=== PATIENT | male | born 1985 | race African-American/Black ===

== ENCOUNTER → 2020-03-11 10:45 | Outpatient (BNVA) | payer OTHER, SELFPAY | PROVIDERS: PCP Internal Medicine; Referring Provider Internal Medicine; Visit Provider Student in an Organized Health Care Education/Training Program | DX: Z76.89 Persons encountering health services in other specified circumstances (principal) ==

== ENCOUNTER → 2020-06-17 09:28 | Outpatient (BNVA) | payer OTHER, SELFPAY | PROVIDERS: PCP Internal Medicine; Visit Provider Student in an Organized Health Care Education/Training Program ==

== ENCOUNTER → 2020-08-23 08:52 | Outpatient (BNVA) | payer OTHER, SELFPAY | PROVIDERS: PCP Internal Medicine; Visit Provider Student in an Organized Health Care Education/Training Program | DX: M05.9 Rheumatoid arthritis with rheumatoid factor, unspecified (principal); Z79.899 Other long term (current) drug therapy | CPT/HCPCS: 99212 ==

== ENCOUNTER 2020-12-05 14:14 | Outpatient (REF) | payer OTHER, SELFPAY ==
[2020-12-05 14:26] LABS: MANUAL DIFF FLAG NO
[2020-12-05 14:46] LABS: Basophils Percent Auto 0.3 % (0-2); Eosinophils Absolute Auto 0.1 X10*3/uL (0.0-0.4); Eosinophils Percent Auto 1.2 % (0-4); Hematocrit 40.3 % (42-52); Hemoglobin 13.7 g/dl (14.0-18.0); Imm Gran Abs Auto 0.03 X10*3/uL (0.00-0.03); Imm Gran Pct Auto 0.3 % (0.0-0.4); Lymphocytes Absolute Auto 3.9 X10*3/uL (1.2-4.9); Lymphocytes Percent Auto 37.7 % (20-40); Mean Corpuscular Hemoglobin 29.8 pg (27.0-33.0); Mean Corpuscular Volume 87.8 fL (80-98); Mean Platelet Volume 9.1 fL (9.4-12.4); Monocytes Absolute Auto 0.5 X10*3/uL (0.1-1.2); Neutrophils Absolute Auto 5.8 X10*3/uL (2.0-8.3); Neutrophils Percent Auto 55.5 % (45-73); Platelet Count 252 X10*3/uL (160-400); Red Blood Count 4.59 X10*6/uL (4.60-5.80); Red Cell Distribution Width 13.3 % (11.0-16.0); White Blood Count 10.4 X10*3/uL (4.8-10.8)
[2020-12-05 15:08] LABS: Alanine Aminotransferase 15 U/L (0-40); Albumin Level 4.6 g/dL (3.5-5.0); Alkaline Phosphatase 108 U/L (39-117); Anion Gap 10 (12-20); Aspartate Amino Transferase 26 U/L (5-37); Bilirubin Total 0.8 mg/dL (0.0-1.0); Blood Urea Nitrogen 7 mg/dL (9-16); C Reactive Protein 0.07 mg/dL (< or = 0.50); Calcium 9.9 mg/dL (8.4-10.2); Carbon Dioxide 31 mmol/L (22-29); Chloride 104 mmol/L (96-108); Estimated Glomerular Filt Rate > 60; Glucose Random 99 mg/dL (60-115); Potassium 4.3 mmol/L (3.3-5.1); Sodium 141 mmol/L (135-145); Total Protein 7.3 g/dL (6.5-8.0)
[2020-12-05 15:56] LABS: Erythrocyte Sedimentation Rate 12 MM/HR (0-15)
== END 2020-12-05 14:15 | disposition home or self-care (01) ==
LOC: HO.LAB 14:14
PROVIDERS: Visit Provider Nurse Practitioner Family
DX: M05.9 Rheumatoid arthritis with rheumatoid factor, unspecified (principal)
CPT/HCPCS: 36415; 80053; 85025; 85652; 86140

== ENCOUNTER → 2020-12-21 08:43 | Outpatient (BNVA) | payer OTHER, SELFPAY | PROVIDERS: PCP Internal Medicine; Visit Provider Nurse Practitioner Family | DX: M05.9 Rheumatoid arthritis with rheumatoid factor, unspecified (principal); Z79.899 Other long term (current) drug therapy | CPT/HCPCS: 99212 ==

== ENCOUNTER 2021-04-08 09:05 | Outpatient (REF) | payer OTHER, SELFPAY ==
[2021-04-08 09:27] LABS: MANUAL DIFF FLAG NO
[2021-04-08 10:10] LABS: Basophils Percent Auto 0.2 % (0-2); Eosinophils Absolute Auto 0.3 X10*3/uL (0.0-0.4); Eosinophils Percent Auto 2.3 % (0-4); Hematocrit 39.9 % (42.0-52.0); Hemoglobin 13.4 g/dl (14.0-18.0); Imm Gran Abs Auto 0.08 X10*3/uL (0.00-0.03); Imm Gran Pct Auto 0.6 % (0.0-0.4); Lymphocytes Absolute Auto 3.7 X10*3/uL (1.2-4.9); Lymphocytes Percent Auto 28.6 % (20-40); Mean Corpuscular HGB Conc 33.6 g/dl (31.0-36.0); Mean Corpuscular Hemoglobin 29.6 pg (27.0-33.0); Mean Corpuscular Volume 88.3 fL (80.0-98.0); Mean Platelet Volume 9.3 fL (9.4-12.4); Monocytes Absolute Auto 0.8 X10*3/uL (0.1-1.2); Neutrophils Absolute Auto 8.1 x10*3/uL (2.0-8.3); Neutrophils Percent Auto 62.3 % (45-73); Platelet Count 296 X10*3/uL (160-400); Red Blood Count 4.52 X10*6/uL (4.60-5.80); Red Cell Distribution Width 13.3 % (11.0-16.0)
[2021-04-08 10:20] LABS: Alanine Aminotransferase 13 U/L (0-40); Albumin Level 4.2 g/dL (3.5-5.0); Alkaline Phosphatase 107 U/L (39-117); Anion Gap 12 (12-20); Aspartate Amino Transferase 26 U/L (5-37); Bilirubin Total 0.4 mg/dL (0.0-1.0); Blood Urea Nitrogen 10 mg/dL (9-16); C Reactive Protein 0.12 mg/dL (< or = 0.50); Calcium 9.7 mg/dL (8.4-10.2); Carbon Dioxide 27 mmol/L (22-29); Chloride 107 mmol/L (96-108); Estimated Glomerular Filt Rate > 60; Glucose Random 92 mg/dL (60-115); Potassium 4.7 mmol/L (3.3-5.1); Sodium 141 mmol/L (135-145)
[2021-04-08 11:07] LABS: Erythrocyte Sedimentation Rate 16 MM/HR (0-15)
== END 2021-04-08 09:06 | disposition home or self-care (01) ==
LOC: HO.LAB 09:05
PROVIDERS: Visit Provider Nurse Practitioner Family
DX: M05.9 Rheumatoid arthritis with rheumatoid factor, unspecified (principal); Z79.899 Other long term (current) drug therapy
CPT/HCPCS: 36415; 80053; 85025; 85652; 86140

== ENCOUNTER → 2021-04-24 12:32 | Outpatient (BNVA) | payer OTHER, SELFPAY | PROVIDERS: PCP Internal Medicine; Visit Provider Nurse Practitioner Family | DX: M05.9 Rheumatoid arthritis with rheumatoid factor, unspecified (principal); Z79.899 Other long term (current) drug therapy | CPT/HCPCS: 99212 ==

== ENCOUNTER 2021-07-08 09:56 | Outpatient (REF) | payer OTHER, SELFPAY ==
[2021-07-08 10:15] LABS: MANUAL DIFF FLAG NO
[2021-07-08 11:01] LABS: Basophils Percent Auto 0.2 % (0-2); Eosinophils Absolute Auto 0.2 X10*3/uL (0.0-0.4); Eosinophils Percent Auto 1.7 % (0-4); Hematocrit 41.4 % (42.0-52.0); Hemoglobin 13.9 g/dl (14.0-18.0); Imm Gran Abs Auto 0.03 X10*3/uL (0.00-0.03); Imm Gran Pct Auto 0.3 % (0.0-0.4); Lymphocytes Absolute Auto 3.9 X10*3/uL (1.2-4.9); Lymphocytes Percent Auto 33.2 % (20-40); Mean Corpuscular HGB Conc 33.6 g/dl (31.0-36.0); Mean Corpuscular Hemoglobin 29.4 pg (27.0-33.0); Mean Corpuscular Volume 87.7 fL (80.0-98.0); Monocytes Absolute Auto 0.6 X10*3/uL (0.1-1.2); Monocytes Percent Auto 5.5 % (2-11); Neutrophils Absolute Auto 6.9 x10*3/uL (2.0-8.3); Neutrophils Percent Auto 59.1 % (45-73); Platelet Count 261 X10*3/uL (160-400); Red Blood Count 4.72 X10*6/uL (4.60-5.80); Red Cell Distribution Width 13.3 % (11.0-16.0); White Blood Count 11.7 X10*3/uL (4.8-10.8)
[2021-07-08 11:20] LABS: Alanine Aminotransferase 16 U/L (0-40); Albumin Level 4.2 g/dL (3.5-5.0); Alkaline Phosphatase 107 U/L (39-117); Anion Gap 13 (12-20); Aspartate Amino Transferase 24 U/L (5-37); Bilirubin Total 0.6 mg/dL (0.0-1.0); Blood Urea Nitrogen 11 mg/dL (9-16); C Reactive Protein 0.07 mg/dL (< or = 0.50); Calcium 9.8 mg/dL (8.4-10.2); Carbon Dioxide 27 mmol/L (22-29); Chloride 104 mmol/L (96-108); Estimated Glomerular Filt Rate > 60; Glucose Random 118 mg/dL (60-115); Potassium 4.4 mmol/L (3.3-5.1); Sodium 140 mmol/L (135-145); Total Protein 6.9 g/dL (6.5-8.0)
[2021-07-08 11:46] LABS: Erythrocyte Sedimentation Rate 11 MM/HR (0-15)
== END 2021-07-08 09:57 | disposition home or self-care (01) ==
LOC: HO.LAB 09:56
PROVIDERS: PCP Internal Medicine; Visit Provider Nurse Practitioner Family
DX: M05.9 Rheumatoid arthritis with rheumatoid factor, unspecified (principal)
CPT/HCPCS: 36415; 80053; 85025; 85652; 86140

== ENCOUNTER → 2021-07-18 13:36 | Outpatient (BNVA) | payer OTHER, SELFPAY | PROVIDERS: PCP Internal Medicine; Visit Provider Nurse Practitioner Family | DX: M05.9 Rheumatoid arthritis with rheumatoid factor, unspecified (principal); Z79.899 Other long term (current) drug therapy | CPT/HCPCS: 99212 ==

== ENCOUNTER 2021-11-11 08:18 | Outpatient (REF) | payer OTHER, SELFPAY ==
[2021-11-11 08:40] LABS: MANUAL DIFF FLAG NO
[2021-11-11 08:48] LABS: Basophils Percent Auto 0.3 % (0-2); Eosinophils Absolute Auto 0.2 X10*3/uL (0.0-0.4); Eosinophils Percent Auto 1.5 % (0-4); Hematocrit 41.7 % (42.0-52.0); Hemoglobin 14.1 g/dl (14.0-18.0); Imm Gran Abs Auto 0.03 X10*3/uL (0.00-0.03); Imm Gran Pct Auto 0.3 % (0.0-0.4); Lymphocytes Percent Auto 28.5 % (20-40); Mean Corpuscular HGB Conc 33.8 g/dl (31.0-36.0); Mean Corpuscular Hemoglobin 29.9 pg (27.0-33.0); Mean Corpuscular Volume 88.3 fL (80.0-98.0); Mean Platelet Volume 8.8 fL (9.4-12.4); Monocytes Absolute Auto 0.6 X10*3/uL (0.1-1.2); Monocytes Percent Auto 5.6 % (2-11); Neutrophils Absolute Auto 6.6 x10*3/uL (2.0-8.3); Neutrophils Percent Auto 63.8 % (45-73); Platelet Count 273 X10*3/uL (160-400); Red Blood Count 4.72 X10*6/uL (4.60-5.80); Red Cell Distribution Width 13.6 % (11.0-16.0); White Blood Count 10.4 X10*3/uL (4.8-10.8)
[2021-11-11 09:22] LABS: Alanine Aminotransferase 15 U/L (0-40); Albumin Level 4.3 g/dL (3.5-5.0); Alkaline Phosphatase 110 U/L (39-117); Anion Gap 14 (12-20); Aspartate Amino Transferase 25 U/L (5-37); Bilirubin Total 0.6 mg/dL (0.0-1.0); Blood Urea Nitrogen 11 mg/dL (9-16); C Reactive Protein 0.12 mg/dL (< or = 0.50); Calcium 9.8 mg/dL (8.4-10.2); Carbon Dioxide 28 mmol/L (22-29); Chloride 105 mmol/L (96-108); Estimated Glomerular Filt Rate > 60; Glucose Random 108 mg/dL (60-115); Potassium 4.7 mmol/L (3.3-5.1); Sodium 142 mmol/L (135-145); Total Protein 7.2 g/dL (6.5-8.0)
[2021-11-11 09:40] LABS: Erythrocyte Sedimentation Rate 14 MM/HR (0-15)
== END 2021-11-11 08:19 | disposition home or self-care (01) ==
LOC: HO.LAB 08:18
PROVIDERS: PCP Internal Medicine; Visit Provider Nurse Practitioner Family
DX: M05.9 Rheumatoid arthritis with rheumatoid factor, unspecified (principal)
CPT/HCPCS: 36415; 80053; 85025; 85652; 86140

== ENCOUNTER → 2021-11-28 14:14 | Outpatient (BNVA) | payer OTHER, SELFPAY | PROVIDERS: PCP Internal Medicine; Visit Provider Nurse Practitioner Family | DX: M05.9 Rheumatoid arthritis with rheumatoid factor, unspecified (principal); Z79.899 Other long term (current) drug therapy | CPT/HCPCS: 99212 ==

== ENCOUNTER 2022-03-20 06:19 | Outpatient (REF) | payer OTHER, SELFPAY ==
[2022-03-20 06:25] LABS: MANUAL DIFF FLAG NO
[2022-03-20 07:32] LABS: Basophils Percent Auto 0.4 % (0-2); Eosinophils Absolute Auto 0.2 X10*3/uL (0.0-0.4); Eosinophils Percent Auto 2.2 % (0-4); Hematocrit 42.5 % (42.0-52.0); Hemoglobin 14.1 g/dl (14.0-18.0); Imm Gran Abs Auto 0.02 X10*3/uL (0.00-0.03); Imm Gran Pct Auto 0.2 % (0.0-0.4); Lymphocytes Absolute Auto 4.8 X10*3/uL (1.2-4.9); Lymphocytes Percent Auto 44.1 % (20-40); Mean Corpuscular HGB Conc 33.2 g/dl (31.0-36.0); Mean Corpuscular Hemoglobin 29.2 pg (27.0-33.0); Mean Platelet Volume 9.3 fL (9.4-12.4); Monocytes Absolute Auto 0.8 X10*3/uL (0.1-1.2); Monocytes Percent Auto 7.5 % (2-11); Neutrophils Percent Auto 45.6 % (45-73); Platelet Count 280 X10*3/uL (160-400); Red Blood Count 4.83 X10*6/uL (4.60-5.80); Red Cell Distribution Width 13.5 % (11.0-16.0); White Blood Count 10.9 X10*3/uL (4.8-10.8)
[2022-03-20 08:00] LABS: Alanine Aminotransferase 15 U/L (0-40); Aspartate Amino Transferase 25 U/L (5-37); C Reactive Protein < 0.10 mg/dL (< or = 0.50); Estimated Glomerular Filt Rate > 60
[2022-03-20 08:10] LABS: Erythrocyte Sedimentation Rate 17 MM/HR (0-15)
== END 2022-03-20 06:20 | disposition home or self-care (01) ==
LOC: HO.LAB 06:19
PROVIDERS: PCP Internal Medicine; Visit Provider Nurse Practitioner Family
DX: M05.9 Rheumatoid arthritis with rheumatoid factor, unspecified (principal); Z79.899 Other long term (current) drug therapy
CPT/HCPCS: 36415; 82565; 84450; 84460; 85025; 85652; 86140

== ENCOUNTER → 2022-03-22 13:24 | Outpatient (BNVA) | payer OTHER, SELFPAY | PROVIDERS: PCP Internal Medicine; Visit Provider Nurse Practitioner Family | DX: M05.9 Rheumatoid arthritis with rheumatoid factor, unspecified (principal) | CPT/HCPCS: 99212 ==

== ENCOUNTER 2022-06-30 07:49 | Outpatient (REF) | payer OTHER, SELFPAY ==
[2022-06-30 08:16] LABS: MANUAL DIFF FLAG NO
[2022-06-30 08:41] LABS: Basophils Percent Auto 0.2 % (0-2); Eosinophils Absolute Auto 0.2 X10*3/uL (0.0-0.4); Eosinophils Percent Auto 1.5 % (0-4); Hematocrit 43.5 % (42.0-52.0); Hemoglobin 14.8 g/dl (14.0-18.0); Imm Gran Abs Auto 0.05 X10*3/uL (0.00-0.03); Imm Gran Pct Auto 0.4 % (0.0-0.4); Lymphocytes Absolute Auto 3.4 X10*3/uL (1.2-4.9); Lymphocytes Percent Auto 24.7 % (20-40); Mean Corpuscular Hemoglobin 29.9 pg (27.0-33.0); Mean Corpuscular Volume 87.9 fL (80.0-98.0); Mean Platelet Volume 9.1 fL (9.4-12.4); Monocytes Absolute Auto 0.8 X10*3/uL (0.1-1.2); Monocytes Percent Auto 6.1 % (2-11); Neutrophils Absolute Auto 9.2 x10*3/uL (2.0-8.3); Neutrophils Percent Auto 67.1 % (45-73); Platelet Count 288 X10*3/uL (160-400); Red Blood Count 4.95 X10*6/uL (4.60-5.80); Red Cell Distribution Width 13.5 % (11.0-16.0); White Blood Count 13.7 X10*3/uL (4.8-10.8)
[2022-06-30 09:04] LABS: Alanine Aminotransferase 19 U/L (0-40); Aspartate Amino Transferase 26 U/L (5-37); C Reactive Protein < 0.10 mg/dL (< or = 0.50); Estimated Glomerular Filt Rate > 60
[2022-06-30 10:03] LABS: Erythrocyte Sedimentation Rate 7 MM/HR (0-15)
== END 2022-06-30 07:50 | disposition home or self-care (01) ==
LOC: HO.LAB 07:49
PROVIDERS: PCP Internal Medicine; Visit Provider Nurse Practitioner Family
DX: M05.9 Rheumatoid arthritis with rheumatoid factor, unspecified (principal); Z79.899 Other long term (current) drug therapy
CPT/HCPCS: 36415; 82565; 84450; 84460; 85025; 85652; 86140

== ENCOUNTER → 2022-07-24 15:17 | Outpatient (BNVA) | payer OTHER, SELFPAY | PROVIDERS: PCP Internal Medicine; Visit Provider Nurse Practitioner Family | DX: M05.9 Rheumatoid arthritis with rheumatoid factor, unspecified (principal); Z79.899 Other long term (current) drug therapy | CPT/HCPCS: 99212 ==

== ENCOUNTER 2022-11-09 16:12 | Outpatient (REF) | payer OTHER, SELFPAY ==
[2022-11-09 16:23] LABS: MANUAL DIFF FLAG NO
[2022-11-09 17:12] LABS: Basophils Percent Auto 0.2 % (0-2); Eosinophils Absolute Auto 0.2 X10*3/uL (0.0-0.4); Eosinophils Percent Auto 1.6 % (0-4); Hematocrit 37.2 % (42.0-52.0); Hemoglobin 12.8 g/dl (14.0-18.0); Imm Gran Abs Auto 0.03 X10*3/uL (0.00-0.03); Imm Gran Pct Auto 0.3 % (0.0-0.4); Lymphocytes Percent Auto 35.1 % (20-40); Mean Corpuscular HGB Conc 34.4 g/dl (31.0-36.0); Mean Corpuscular Hemoglobin 29.8 pg (27.0-33.0); Mean Corpuscular Volume 86.5 fL (80.0-98.0); Monocytes Absolute Auto 0.7 X10*3/uL (0.1-1.2); Monocytes Percent Auto 6.4 % (2-11); Neutrophils Absolute Auto 6.4 x10*3/uL (2.0-8.3); Neutrophils Percent Auto 56.4 % (45-73); Platelet Count 215 X10*3/uL (160-400); Red Cell Distribution Width 13.2 % (11.0-16.0); White Blood Count 11.4 X10*3/uL (4.8-10.8)
[2022-11-09 18:14] LABS: Alanine Aminotransferase 15 U/L (0-40); Aspartate Amino Transferase 26 U/L (5-37); C Reactive Protein < 0.04 mg/dL (< or = 0.50); Estimated Glomerular Filt Rate > 60
[2022-11-09 18:28] LABS: Erythrocyte Sedimentation Rate 12 MM/HR (0-15)
== END 2022-11-09 16:13 | disposition home or self-care (01) ==
LOC: HO.LAB 16:12
PROVIDERS: PCP Internal Medicine; Visit Provider Nurse Practitioner Family
DX: M05.9 Rheumatoid arthritis with rheumatoid factor, unspecified (principal); Z79.899 Other long term (current) drug therapy
CPT/HCPCS: 36415; 82565; 84450; 84460; 85025; 85652; 86140

== ENCOUNTER 2022-11-12 14:29 | Outpatient (AMB) | payer OTHER, SELFPAY ==
[2022-11-12 14:34] VITALS: BP 102/60; PULSE 92; TEMP 37.2; O2SAT 98; BMI 23.7
--- NOTE | 2022-11-12 14:34 | MHC.OFFVIS ---
Intake Vital Signs 11/12/22 14:34 Height 5 ft 8 in Weight 156 lb 1.396 oz BMI 23.7 BP 102/60 Blood Pressure Location Rt brachial Position Sitting Pulse 92 Pulse Source Pulse Oximeter Temp 99.0 F Temp Source Skin Pulse Oximetry (%) 98 Intake Visit Reasons: rheumatoid arthritis Intake Note: Pt seen today for follow up and test results. 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 He was last seen by Kamila Membreno 2022. Continues on Humira 40mg every 2 weeks. Patient states that he continues to do well. He denies any joint pain, swelling or stiffness. He denies any concerns today. 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 Still trying to have a baby with his partner. [facility] Medical History (Updated 11/12/22 @ 14:59 by Gt Drew MD) Denial Seropositive rheumatoid arthritis Surgical History No history of previous surgery Family History Mother Diabetes HTN (hypertension) Father Heart attack Social History Alcohol intake: current Alcohol intake frequency: holidays/special occasions only Patient Tobacco Use Status: Current everyday Tobacco user Cigarettes Per Day: 5 Years Smoked: 10 Review of Systems [facility] [place] Denies arthralgias and Denies stiffness Physical Exam Vital Signs: Last Vital Signs Temp 99.0 F 11/12/22 14:34 Pulse 92 11/12/22 14:34 BP 102/60 11/12/22 14:34 Pulse Ox 98 11/12/22 14:34 BMI result Body Mass Index 23.7 Const General: cooperative, healthy appearing and comfortable Nutritional Appearance: average body habitus Orientation/consciousness: patient oriented x3 Limitations: no limitations HEENT Head: Yes normocephalic and Yes atraumatic Mouth: moist mucous membranes Resp Effort & Inspection: normal respiratory effort and able to speak in complete sentences Auscultation: clear to auscultation bilaterally Cardio Rate: regular rate Rhythm: regular rhythm Neuro General: patient oriented x3 Extrem Other: No active synovitis Assessment & Plan Assessment & Plan (1) Seropositive rheumatoid arthritis: Comment: ++RF+++CCP dx 2017 Methotrexate May 2018- stopped around September 2021 Patient planning with spouse. Enbrel: failed-dates unknown Humira: April 2018 - present effective Code(s): M05.9 - Rheumatoid arthritis with rheumatoid factor, unspecified Plan: This is a 37-year-old male with seropositive RA who returns for follow-up. He is on remission on Humira 40 mg every other week. Continue Humira 40 mg every other week. Labs before next visit in 6 months (2) Tobacco consumption: Code(s): Z72.0 - Tobacco use Plan: Discussed ill effects of smoking on rheumatoid arthritis disease activity in addition to other known ill effects of chronic smoking such as COPD cancers and cardiovascular disease. Advised patient to attempt to quit Plan I spent 26 minutes reviewing patient's chart, evaluating patient, ordering diagnostic workup, counseling patient and documenting in the chart Orders: Orders Comprehensive Met. Panel 6 Months M05.9 - Rheumatoid arthritis with rheumatoid factor, unspecified Hepatitis A,B,C Profile 6 Months Z11.59 - Encounter for screening for other viral diseases T Spot TB 6 Months Z11.7 - Encounter for testing for latent tuberculosis infection Complete Blood Count Auto Diff 6 Months M05.9 - Rheumatoid arthritis with rheumatoid factor, unspecified C Reactive Protein 6 Months M05.9 - Rheumatoid arthritis with rheumatoid factor, unspecified Erythrocyte Sedimentation Rate 6 Months M05.9 - Rheumatoid arthritis with rheumatoid factor, unspecified Coding Level of Care Code Est Pt Level 4 (69619) Diagnoses Seropositive rheumatoid arthritis M05.9 Tobacco consumption Z72.0
== END 2022-11-12 14:51 | disposition home or self-care (01) ==
PROVIDERS: PCP Internal Medicine; Referring Provider Internal Medicine; Visit Provider Student in an Organized Health Care Education/Training Program
DX: M05.79 Rheumatoid arthritis with rheumatoid factor of multiple sites without organ or systems involvement (principal); Z72.0 Tobacco use
CPT/HCPCS: 99214

== ENCOUNTER → 2022-11-12 14:29 | Outpatient (BNVA) | payer OTHER, SELFPAY | PROVIDERS: PCP Internal Medicine; Referring Provider Internal Medicine; Visit Provider Student in an Organized Health Care Education/Training Program | DX: M05.9 Rheumatoid arthritis with rheumatoid factor, unspecified (principal); Z72.0 Tobacco use | CPT/HCPCS: 99212 ==

== ENCOUNTER 2023-04-29 15:53 | Outpatient (REF) | payer OTHER, SELFPAY ==
[2023-04-29 16:05] LABS: MANUAL DIFF FLAG NO
[2023-04-29 17:39] LABS: Basophils Percent Auto 0.3 % (0-2); Eosinophils Absolute Auto 0.3 X10*3/uL (0.0-0.4); Eosinophils Percent Auto 2.4 % (0-4); Hematocrit 39.3 % (42.0-52.0); Hemoglobin 13.5 g/dl (14.0-18.0); Imm Gran Abs Auto 0.03 X10*3/uL (0.00-0.03); Imm Gran Pct Auto 0.3 % (0.0-0.4); Lymphocytes Absolute Auto 4.1 X10*3/uL (1.2-4.9); Lymphocytes Percent Auto 37.6 % (20-40); Mean Corpuscular HGB Conc 34.4 g/dl (31.0-36.0); Mean Corpuscular Hemoglobin 29.7 pg (27.0-33.0); Mean Corpuscular Volume 86.6 fL (80.0-98.0); Mean Platelet Volume 9.4 fL (9.4-12.4); Monocytes Absolute Auto 0.7 X10*3/uL (0.1-1.2); Monocytes Percent Auto 6.6 % (2-11); Neutrophils Absolute Auto 5.8 x10*3/uL (2.0-8.3); Neutrophils Percent Auto 52.8 % (45-73); Platelet Count 255 X10*3/uL (160-400); Red Blood Count 4.54 X10*6/uL (4.60-5.80); Red Cell Distribution Width 13.6 % (11.0-16.0); White Blood Count 10.9 X10*3/uL (4.8-10.8)
[2023-04-29 18:11] LABS: Alanine Aminotransferase 15 U/L (0-40); Albumin Level 4.3 g/dL (3.5-5.0); Alkaline Phosphatase 104 U/L (39-117); Anion Gap 9 (12-20); Aspartate Amino Transferase 26 U/L (5-37); Bilirubin Total 0.3 mg/dL (0.0-1.0); Blood Urea Nitrogen 8 mg/dL (9-16); C Reactive Protein < 0.10 mg/dL (< or = 0.50); Calcium 9.4 mg/dL (8.4-10.2); Carbon Dioxide 30 mmol/L (22-29); Chloride 106 mmol/L (96-108); Estimated Glomerular Filt Rate > 60; Glucose Random 97 mg/dL (60-115); Potassium 3.4 mmol/L (3.3-5.1); Sodium 142 mmol/L (135-145); Total Protein 7.3 g/dL (6.5-8.0)
[2023-04-29 18:15] LABS: Erythrocyte Sedimentation Rate 13 MM/HR (0-15)
[2023-04-30 08:07] LABS: HBS Num1 5.25 mIU/mL (0-7.99); HBc Num1 0.07 S/CO (0.00-0.79); HBsAGNum1 0.39 S/CO (0.00-0.99); Hepatitis A Antibody IgM 0.13 Index (0-0.79); Hepatitis B Core Antibody Nonreactive (Nonreactive); Hepatitis B Surface Antigen Negative (Negative); ~HepC Num1 0.08 S/CO (0.00-0.79); ~Hepatitis A Antibody IgM Nonreactive (Nonreactive); ~Hepatitis B Surface Antibody NONREACTIVE (Nonreactive); ~Hepatitis C Antibody Nonreactive (Nonreactive)
[2023-05-02 00:33] LABS: TS Negative Control Passed; TS Panel A 0; TS Panel B 0; TS Positive Control Passed; TSpotTB Negative (Negative)
== END 2023-04-29 15:54 | disposition home or self-care (01) ==
LOC: HO.LAB 15:53
PROVIDERS: PCP Internal Medicine; Visit Provider Student in an Organized Health Care Education/Training Program
DX: Z11.7 Encounter for testing for latent tuberculosis infection (principal); Z11.59 Encounter for screening for other viral diseases; M05.9 Rheumatoid arthritis with rheumatoid factor, unspecified
CPT/HCPCS: 36415; 80053; 85025; 85652; 86140; 86481; 86704; 86706; 86709; 86803; 87340

== ENCOUNTER 2023-05-01 15:33 | Outpatient (AMB) | payer OTHER, SELFPAY ==
[2023-05-01 15:40] VITALS: BP 110/78; PULSE 81; O2SAT 97; BMI 23.8
--- NOTE | 2023-05-01 15:40 | A.OFFVIS_ITS ---
Intake Vital Signs 05/01/23 15:40 Height 5 ft 8 in Weight 156 lb 11.979 oz BMI 23.8 BP 110/78 Blood Pressure Location Rt brachial Position Sitting Pulse 81 Pulse Source Pulse Oximeter Pulse Oximetry (%) 97 Oxygen Delivery Method Room Air Intake Visit Reasons: RA Intake Note: Patient last seen 11/12/22 presents today for follow up and test results. 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 He was last seen 10/2022 Continues on Humira 40mg every 2 weeks. Patient states that he continues to do well. He denies any joint pain, swelling or stiffness. He denies any concerns today. 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 [facility] Medical History Denial Seropositive rheumatoid arthritis Surgical History No history of previous surgery Family History Mother Diabetes HTN (hypertension) Father Heart attack Social History Alcohol intake: current Alcohol intake frequency: holidays/special occasions only Patient Tobacco Use Status: Current everyday Tobacco user Cigarettes Per Day: 5 Years Smoked: 10 Review of Systems [facility] [place] Denies arthralgias and Denies stiffness Physical Exam Vital Signs: Last Vital Signs Pulse 81 05/01/23 15:40 BP 110/78 05/01/23 15:40 Pulse Ox 97 05/01/23 15:40 Oxygen Delivery Method Room Air 05/01/23 15:40 BMI result Body Mass Index 23.8 Const General: cooperative, healthy appearing and comfortable Nutritional Appearance: average body habitus Orientation/consciousness: patient oriented x3 Limitations: no limitations HEENT Head: Yes normocephalic and Yes atraumatic Mouth: moist mucous membranes Resp Effort & Inspection: normal respiratory effort and able to speak in complete sentences Auscultation: clear to auscultation bilaterally Cardio Rate: regular rate Rhythm: regular rhythm Neuro General: patient oriented x3 Extrem Other: No active synovitis Assessment & Plan Assessment & Plan (1) Seropositive rheumatoid arthritis: Comment: ++RF+++CCP dx 2017 Methotrexate May 2018- stopped around September 2021 Patient planning with spouse. Enbrel: failed-dates unknown Humira: April 2018 - present effective Code(s): M05.9 - Rheumatoid arthritis with rheumatoid factor, unspecified Plan: This is a 38-year-old male with seropositive RA who returns for follow-up. He is on remission on Humira 40 mg every other week. We discussed Humira and its bio similars. Continue Humira 40 mg every other week. Labs before next visit in 6 months (2) Tobacco consumption: Code(s): Z72.0 - Tobacco use Plan: Discussed ill effects of smoking on rheumatoid arthritis disease activity in addition to other known ill effects of chronic smoking such as COPD cancers and cardiovascular disease. Advised patient to attempt to quit Plan I spent 26 minutes reviewing patient's chart, evaluating patient, ordering diagnostic workup, counseling patient and documenting in the chart Coding Level of Care Code Est Pt Level 4 (29904) Diagnoses Seropositive rheumatoid arthritis M05.9 Tobacco consumption Z72.0
== END 2023-05-01 16:06 | disposition home or self-care (01) ==
PROVIDERS: PCP Internal Medicine; Visit Provider Student in an Organized Health Care Education/Training Program
DX: M05.79 Rheumatoid arthritis with rheumatoid factor of multiple sites without organ or systems involvement (principal); Z72.0 Tobacco use
CPT/HCPCS: 99214

== ENCOUNTER → 2023-05-01 15:33 | Outpatient (BNVA) | payer OTHER, SELFPAY | PROVIDERS: PCP Internal Medicine; Visit Provider Student in an Organized Health Care Education/Training Program | DX: M05.9 Rheumatoid arthritis with rheumatoid factor, unspecified (principal); Z72.0 Tobacco use | CPT/HCPCS: 99212 ==

== ENCOUNTER 2024-01-07 13:58 | Outpatient (AMB) | payer OTHER, SELFPAY ==
--- NOTE | 2024-01-07 14:18 | MHC.OFFVIS ---
Vital Signs 01/07/24 14:21 Height 5 ft 8 in Weight 156 lb 11.979 oz BMI 23.8 BP 100/70 Blood Pressure Location Rt brachial Position Sitting Pulse 70 Pulse Source Pulse Oximeter Pulse Oximetry (%) 98 Oxygen Delivery Method Room Air Intake Visit Reasons: RA/LM Intake Note: Patient presents for RA. Allergies No Known Allergies [No Known Allergies*] Allergy (Verified 01/07/24 14:21) Medication List - Last Reconciled 01/07/24 by Gt Drew MD adalimumab (Humira(CF)) 40 mg (0.4 mL) subcut Q2W HPI Comments Details: 38yoM presents for follow-up of seropositive RA (RF++ CCP+++). He was last seen 04/2023 Continues on Humira 40mg every 2 weeks. Patient states that he continues to do well. He denies any joint pain, swelling or stiffness. He denies any concerns today. 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 [facility] Medical History Denial Seropositive rheumatoid arthritis Surgical History No history of previous surgery Family History Mother Diabetes HTN (hypertension) Father Heart attack Social History Alcohol intake: current Alcohol intake frequency: holidays/special occasions only Patient Tobacco Use Status: Current everyday Tobacco user Cigarettes Per Day: 5 Years Smoked: 10 Review of Systems [facility] [place] Denies arthralgias and Denies stiffness Physical Exam Vital Signs: Last Vital Signs Pulse 70 01/07/24 14:21 BP 100/70 01/07/24 14:21 Pulse Ox 98 01/07/24 14:21 Oxygen Delivery Method Room Air 01/07/24 14:21 BMI result Body Mass Index 23.8 Const General: cooperative, healthy appearing and comfortable Nutritional Appearance: average body habitus Orientation/consciousness: patient oriented x3 Limitations: no limitations HEENT Head: Yes normocephalic and Yes atraumatic Mouth: moist mucous membranes Resp Effort & Inspection: normal respiratory effort and able to speak in complete sentences Auscultation: clear to auscultation bilaterally Cardio Rate: regular rate Rhythm: regular rhythm Neuro General: patient oriented x3 Extrem Other: No active synovitis Assessment & Plan Assessment & Plan (1) Seropositive rheumatoid arthritis: Comment: ++RF+++CCP dx 2017 Methotrexate May 2018- stopped around September 2021 Patient planning with spouse. Enbrel: failed-dates unknown Humira: April 2018 - present effective Code(s): M05.9 - Rheumatoid arthritis with rheumatoid factor, unspecified Category: Medical Plan: This is a 38-year-old male with seropositive RA who returns for follow-up. He is on remission on Humira 40 mg every other week. Continue Humira 40 mg every other week. Patient has been in remission for a long time. Labs before next visit in 9 months (2) Tobacco consumption: Code(s): Z72.0 - Tobacco use Category: Social Hx Plan: Discussed ill effects of smoking on rheumatoid arthritis disease activity in addition to other known ill effects of chronic smoking such as COPD cancers and cardiovascular disease. Advised patient to attempt to quit. He states that he was recently prescribed gummies by his PCP. 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 Patient fully aware. Advised patient to seek medical care GAUDENCIO if patient has an infection and advised patient to stop the medication until the infection is resolved. Plan I spent 26 minutes reviewing patient's chart, evaluating patient, ordering diagnostic workup, counseling patient and documenting in the chart Orders: Orders Complete Blood Count Auto Diff 9 Months M05.9 - Rheumatoid arthritis with rheumatoid factor, unspecified Comprehensive Met. Panel 9 Months M05.9 - Rheumatoid arthritis with rheumatoid factor, unspecified C Reactive Protein 9 Months M05.9 - Rheumatoid arthritis with rheumatoid factor, unspecified Erythrocyte Sedimentation Rate 9 Months M05.9 - Rheumatoid arthritis with rheumatoid factor, unspecified Hepatitis A,B,C Profile 9 Months Z11.59 - Encounter for screening for other viral diseases T Spot TB 9 Months Z11.7 - Encounter for testing for latent tuberculosis infection Coding Level of Care Code Est Pt Level 4 (77588) Complex EM visit Add On G2211 Diagnoses Seropositive rheumatoid arthritis M05.9 Tobacco consumption Z72.0 High risk medication use Z79.899
[2024-01-07 14:21] VITALS: BP 100/70; PULSE 70; O2SAT 98; BMI 23.8
== END 2024-01-07 15:02 | disposition home or self-care (01) ==
PROVIDERS: PCP Internal Medicine; Visit Provider Student in an Organized Health Care Education/Training Program
DX: M05.79 Rheumatoid arthritis with rheumatoid factor of multiple sites without organ or systems involvement (principal); Z72.0 Tobacco use; Z79.899 Other long term (current) drug therapy
CPT/HCPCS: 99214; G2211

== ENCOUNTER → 2024-01-07 13:58 | Outpatient (BNVA) | payer OTHER, SELFPAY | PROVIDERS: PCP Internal Medicine; Visit Provider Student in an Organized Health Care Education/Training Program | DX: M05.9 Rheumatoid arthritis with rheumatoid factor, unspecified (principal); Z72.0 Tobacco use; Z79.899 Other long term (current) drug therapy | CPT/HCPCS: 99212 ==

== ENCOUNTER 2024-01-27 15:27 | Outpatient (REF) | payer OTHER, SELFPAY ==
[2024-01-27 17:22] LABS: Cholesterol 193 mg/dL (<200); HDL Cholesterol 49 mg/dL (>40); LDL Cholesterol Calculated 112 mg/dL (<100); Triglycerides 160 mg/dL (<150)
[2024-01-27 17:39] LABS: Vitamin D 25-OH Total 33.6 ng/mL (>30)
[2024-01-27 19:19] LABS: Reflex LDLD? No
[2024-01-28 03:59] LABS: Syphilis Screen Nonreactive (Nonreactive)
[2024-01-28 04:20] LABS: HBS Num1 5.94 mIU/mL (0-7.99); HBc Num1 0.07 S/CO (0.00-0.79); HBsAGNum1 0.42 S/CO (0.00-0.99); HIV AB/AG Nonreactive (Nonreactive); HIV Num 1 0.05 S/CO (0.00-0.99); Hepatitis A Antibody IgM 0.13 Index (0-0.79); Hepatitis B Core Antibody Nonreactive (Nonreactive); Hepatitis B Surface Antigen Negative (Negative); ~HepC Num1 0.11 S/CO (0.00-0.79); ~Hepatitis A Antibody IgM Nonreactive (Nonreactive); ~Hepatitis B Surface Antibody NONREACTIVE (Nonreactive); ~Hepatitis C Antibody Nonreactive (Nonreactive)
[2024-01-28 08:34] LABS: Rubella IgG Antibody 1.54 Index
[2024-01-30 08:14] LABS: TS Negative Control Passed; TS Panel A 1; TS Panel B 3; TS Positive Control Passed; TSpotTB Negative (Negative)
== END 2024-01-27 15:28 | disposition home or self-care (01) ==
LOC: HO.HHCL 15:27
PROVIDERS: Visit Provider Internal Medicine
DX: Z00.00 Encounter for general adult medical examination without abnormal findings (principal); M05.79 Rheumatoid arthritis with rheumatoid factor of multiple sites without organ or systems involvement; Z20.2 Contact with and (suspected) exposure to infections with a predominantly sexual mode of transmission; F17.210 Nicotine dependence, cigarettes, uncomplicated; H54.3 Unqualified visual loss, both eyes; R06.2 Wheezing
CPT/HCPCS: 36415; 80061; 82306; 86481; 86704; 86706; 86709; 86735; 86762; 86765; 86780; 86803; 87340; 87389

== ENCOUNTER 2024-03-10 15:27 | Outpatient (REF) | payer OTHER, SELFPAY ==
--- NOTE | 2024-03-10 15:45 | PFT_ITS ---
Flows: FEV1: 100 % of predicted at 4.03 L FVC: 108 % of predicted at 5.34 L FEV1/FVC: 75 % Bronchodilator response: Absent Volumes: Total lung capacity: 109 % of predicted at 7.27 L Residual volume: 131 % of predicted at 1.92 L Slow vital capacity: 102 % of predicted at 5.34 L Expiratory reserve volume: 151 % of predicted at 2.24 L Diffusion capacity: Normal Impression: No obstructive or restrictive ventilatory defect. No bronchodilator response. Increased residual volume suggests air trapping. MTDD
== END 2024-03-10 15:28 | disposition home or self-care (01) ==
LOC: HO.RESP 15:27
PROVIDERS: PCP Internal Medicine; Visit Provider Internal Medicine
DX: R06.02 Shortness of breath (principal)
CPT/HCPCS: 94010; 94640; 94727; 94729

== ENCOUNTER → 2024-03-10 15:45 | Outpatient (BNV) | payer OTHER, SELFPAY | PROVIDERS: PCP Internal Medicine; Visit Provider Internal Medicine Pulmonary Disease | DX: R06.2 Wheezing (principal) | CPT/HCPCS: 94060; 94727; 94729 ==

== ENCOUNTER 2024-04-03 15:06 | Outpatient (REF) | payer OTHER, SELFPAY ==
--- OUTSIDE RECORDS SUMMARY | 2024-04-03 15:07 | XMS_ITS | Clinical Summary ---
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 Name Role Phone Unavailable Primary Care Provider Unavailabl e Social History Tobacco Use Types Packs/Day Years Used Date Smoking Tobacco: Never Assessed Sex and Gender Information Value Date Recorded Sex Assigned at Not on file Gender Identity Not on file Sexual Orientation Not on file Plan of Treatment Health Maintenance Due Date Last Done Comments DTaP,Tdap,and Td Vaccines (1 - Tdap) 2006 Hepatitis B Vaccines (1 of 3 - 19+ 3-dose series) 2006 COVID-19 Vaccine (2023-2 5 season) 2023 Influenza Vaccine (#1) 2023 HIB Vaccines Aged Out No longer eligi ble based on patient's age to complete this topic HPV Vaccines Aged Out No longer eligi ble based on patient's age to complete this topic Hepatitis A Vaccines Aged Out No long er eligible based on patient's age to complete this topic IPV Vaccines Aged Out No longer eligi ble based on patient's age to complete this topic MMR Vaccines Aged Out No longer eligi ble based on patient's age to complete this topic Meningococcal ACWY Vaccine Aged Out N o longer eligible based on patient's age to complete this topic Pneumococcal Vaccine: Pediat rics (0 to 5 Years) and At-Risk Patients (6 to 64 Years) Aged Out No longer eligible b ased on patient's age to complete this topic RSV Immunization Patients Un lary 20 months Aged Out No longer eligible b ased on patient's age to complete this topic Varicella Vaccines Aged Out No longer eligible based on patient's age to complete this topic
--- OUTSIDE RECORDS SUMMARY | 2024-04-03 15:07 | XMS_ITS | Clinical Summary ---
Author Organization [employer] Address [address] [place] [address] Care Team Providers Care Barrel Rifler Button Name Role Phone Trudy Solis MD Primary Care Provider + Allergies No known active allergies Medications Humira 40 MG/0.4ML Prefilled Syringe Kit prefilled syringe 12/28/2022 Active nicotine polacrilex (Nicorette) 4 MG gum Chew 1 each (4 mg) every 4 (four) hours if needed for smoking cessation. 100 each 3 09/19/2023 Active Active Problems Problem Noted Date Diagnosed Date Wheezing 01/22/2024 Assessment & Plan (01/22/2024 2:31 PM EST): It could be related to smoking vs residual form Covid. Advised to quit smoking, he's not ready at this time. Order PFTs FU in 2-3m Encounter for preventive health examination 12/27 Assessment & Plan (01/22/2024 2:34 PM EST): Discussed with patient re increase fresh fruit and vegetable intake. Counseled re moderate exercise as tolerated, up to 20min/d Patient feels safe at home. Eye exam: Overdue, patietn will go rs it at our eye clinic. Lipids/FBS: TBO Vaccinations: Declined Influenza Covid and zoster vax(he's on immunosuppressants). Advised to get them at earliest convenience. Dental visit: UTD, next one due on 03/2024 Encounter for assessment of STD exposure 024 Assessment & Plan (01/22/2024 2:35 PM EST): No apparent risk factors, wants to be tested. He's aware that he can be also tested at any time at our STD clinic and prn symptoms at [facility]. Decreased vision in both eyes 01/14/2023 Assessment & Plan (01/22/2024 2:35 PM EST): [facility] eye clinic appt. Assessment & Plan (01/14/2023 3:36 PM EST): Refer to ophthalmology Synovitis of ankle 05/21/2018 01/10/2023 Cellulitis of lower limb 05/21/2018 023 Rheumatoid arthritis involvi ng multiple sites with positive rheumatoid factor 02/07/2018 01/10/2023 Assessment & Plan (01/22/2024 2:31 PM EST): Doing well on Humira, fu by rheumatology. Assessment & Plan (09/19/2023 12:00 PM EDT): - Doing well on Humira - Labs within normal limits, continue to follow up with Rheumatology. - Follow up for PE in 6 months. 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 Trying to buy from dispensary as opposed to street. F/u if prn. Knee pain 10/18/2016 01/10/2023 Dermoid cyst of right lower extremity 10/18/2016 01/10/2023 Cannabis abuse 10/18/2016 01/10/2023 Assessment & Plan (01/22/2024 2:36 PM EST): Advised to quit. Advised to buy it at licensed dispensaries instead of on the street as it may contain other substances. Assessment & Plan (01/14/2023 3:40 PM EST): Counseled to cut down on THC use F/u PRN Resolved Problems Problem Noted Date Diagnosed Date Resolved Date Nicotine dependence 10/18/2016 01/10/2023 09/19/19 Assessment & Plan (01/22/2024 2:32 PM EST): Advised to quit smoking and offered nicotine replacement rx, he's not ready at this time Fu at each visit. Encounters Date Type Department Care Team Description 01/22/2024 10:30 AM EST Office Visit [facility] [address] [place] [phone] Trudy Solis MD Encounter for preventive health examination (Primary Dx); Encounter for assessment of STD exposure; Wheezing; Rheumatoid arthritis involving multiple sites with positive rheumatoid factor ([facility]); Cigarette nicotine dependence without complication; Cannabis abuse; Decreased vision in both eyes 01/22/2024 Travel 01/21/[address] [facility] [address] [place] [phone] Tanja Patel MA Chart prep 01/13/[address] [facility] [address] [place] [phone] Trudy Solis MD Pre-visit Planning ([facility] screening completed on 09/11/2023) from Last 3 Months Immunizations Name Administration Dates Next Due Influenza injectable quadriv alent IIV4 with preservative 12/23/2019,11/14/2017,12/18/2016 Influenza injectable quadriv alent preservative free 01/14/2023,12/02/2018 Td (adult), 5 Lf tetanus tox oid, preservative free, adsorbed 08/05/2013 Tdap 12/18/2016 Social History Tobacco Use Types Packs/Day Years Used Date Smoking Tobacco: Every Day Cigarettes Smokeless Tobacco: Never Tobacco Cessation:Ready to Q uit: Not Asked; Counseling Given: Not Answered Alcohol Use Standard Drinks/Week Comments Never 0 (1 standard drink = 0.6 oz pur e alcohol) Housing Stability Answer Date Recorded What is your housing situation today? I have hansel gandara 01/03/[address] you li ve. Do you have problems with any of the following? None of the above 01/03/2023 Food Insecurity Answer Date Recorded Within the past 12 months, y ou worried that your food would run out before you got money to buy more: Never True 01/03/2023 Within the past 12 months,th e food you bought just didn't last and you didn't have enough money to get more: Never True 10/2022 Transportation Answer Date Recorded In the past 12 months, has l ack of transportation kept you from medical appts, meetings, work or from getting things needed for daily living? No 01/03/2023 Utilities Answer Date Recorded In the past 12 months, has t he electric, gas, oil or water company threatened to shut off services in your home? No 01/03/2023 Depression Answer Date Recorded Patient Health Questionnaire-2 Score 0 01/14/2023 Internet Access Answer Date Recorded Internet Access Q1 Yes 10/28/2023 Internet Access Q2 Not on file 10/28/2023 Sex and Gender Information Value Date Recorded Sex Assigned at Male 12/25/2021 10:15 AM EDT Legal Sex Male 10:15 AM EDT Gender Identity Male 12/25/2021 10:15 AM EDT Sexual Orientation Straight 12/25/2021 10 :15 AM EDT Last Filed Vital Signs Vital Sign Reading Time Taken Comments Blood Pressure 115/75 01/22/2024 10:19 AM EST Pulse 70 01/22/2024 10:19 AM EST Temperature 36.8 ??C (98.2 ??F) 01/22/2024 10:[address] Respiratory Rate 16 01/22/2024 10:19 AM EST Oxygen Saturation 100% 01/22/2024 10:19 AM EST Inhaled Oxygen Concentration - - Weight 71.8 kg (158 lb 6 oz) 01/22/2024 10:19 AM EST Height 172.7 cm (5' 8 ) 01/22/2024 10:19 AM EST Body Mass Index 24.08 01/22/2024 10:19 AM EST Plan of Treatment Health Maintenance Due Date Last Done Comments Alcohol/Substance Use Screening 1999 Family Planning (PISQ) 2002 Hepatitis A Vaccines (1 of 2 - Risk 2-dose series) 2006 Hepatitis B Vaccines (1 of 3 - 19+ 3-dose series) 2006 Pneumococcal Vaccine: Pediatrics (0 to 5 Years) and At-Risk Patients (6 to 49) Years) (1 of 2 - PCV) 2006 COVID-19 Vaccine ( season) 2023 Influenza Vaccine (#1) 2023 3, 12/23/2019, 12/02/2018, Additional history exists Depression Screening 01/15/2024 01/14/2023, 01/15/20 23 SDOH Screening 09/10/2024 09/11/2023 Tobacco Screening 01/21/2025 01/22/2024 DTaP/Tdap/Td Vaccines (2 - Td or Tdap) 12/18/2026 12/18/2016, 08/05/2013 Lipid Panel 01/26/2029 01/27/2024 Zoster Vaccines (1 of 2) 2037 RSV Patients and Patients Aged 60 years or older (1 - 1-dose 75+ series) 2062 HIV Screening Completed 01/27/2024 Hepatitis C Screening Completed 01/27/2024, 024 HIB Vaccines Aged Out No longer eligi ble based on patient's age to complete this topic HPV Vaccines Aged Out No longer eligi ble based on patient's age to complete this topic IPV Vaccines Aged Out No longer eligi ble based on patient's age to complete this topic Meningococcal Vaccine Aged Out No lucero daphne eligible based on patient's age to complete this topic RSV under 20 months Aged Out No longe r eligible based on patient's age to complete this topic Rotavirus Vaccines Aged Out No longer eligible based on patient's age to complete this topic Procedures Procedure Name Priority Date/Time Associated Diagnosis Comments T-SPOT(R).TB Routine 01/27/2024 3:29 PM EST Wheezing VITAMIN D,25-OH,TOTAL,IA Routine 01/27/2024 3:29 PM EST Rheumatoid arthritis involving multiple sites with positive rheumatoid factor (CMS/HCC) LIPID PANEL WITH REFLEX TO DIRECT LDL Routine 01/27/2024 3:29 PM EST Cigarette nicotine dependence without complication Decreased vision in both eyes MEASLES, MUMPS, AND RUBELLA (MMR) AB (IGG) PANEL, IMMUNE STATUS Routine 01/27/2024 3:29 PM EST Rheumatoid arthritis involving multiple sites with positive rheumatoid factor (CMS/HCC) SYPHILIS SCREEN Routine 01/27/2024 3:29 PM EST Encounter for assessment of STD exposure HIV 1/2 ANTIGEN/ANTIBODY, FOURTH GENERATION W/RFL Routine 01/27/2024 3:29 PM EST Encounter for assessment of STD exposure HEPATITIS PANEL, GENERAL Routine 01/27/2024 3:29 PM EST Encounter for preventive health examination from Last 3 Months Results * Syphilis Screen (01/27/2024 3:29 PM EST) Syphilis Screen Nonreactive Nonreactive [facility] Blood 01/27/2024 3:29 PM EST 01/27/2024 4:14 PM EST us Trudy Solis MD LAB BLOOD ORDERABLES Fin al Result [facility] [address] [place] [phone] * Vitamin D, 25-Hydroxy, Total, Immunoassay (01/27/2024 3:29 PM EST) Vitamin D 25-OH Total 33.6 >30 ng/mL [facility] Comment:Health Based Referen ce Values*< 20 ng/mL Ojgodqueb09-30 ng/mL Insufficient> 30 ng/mL Sufficient*Soo LITTLE. N Engl J Med. 2007;357:266-280Care must be taken in interpreting Vitamin D results fromdifferent laboratories and methodologies. Published datademonstrated that results from patients undergoinghemodialysis may show a negative bias when tested withvarious automated 25-OH vitamin D assays when compared toLC-MS/MS.When testing samples from patients whose predominant form ofVitamin D is Vitamin D2, such as patients receiving VitaminD2 supplementation, results that are subtherapeutic shouldbe confirmed with another method such as LC-MS/MS. Blood 01/27/2024 3:29 PM EST 01/27/2024 4:14 PM EST Trudy Solis MD LAB BLOOD ORDERABLES Fin al Result [facility] [address] [place] [phone] * T-SPOT??.TB (01/27/2024 3:29 PM EST) [facility] T Spot TB Negative Negative [facility] Comment:A negative test resu lt does not exclude the possibilityof exposure to or infection with Mycobacteriumtuberculosis (M. tuberculosis). Patients with recentexposure to TB infected individuals exhibiting anegative T-SPOT.TB result should be considered forretesting within 6 weeks or if other relevant clinicalsymptoms indicate. Results from T-SPOT.TB testing mustbe used in conjunction with each individual'sepidemiological history, current medical status,and results of other diagnostic evaluations.The T-SPOT.TB test is qualitative and results arereported as positive, borderline, or negative, giventhat the test controls perform as expected. In linewith the Centers for Disease Control and Prevention's2010 recommendation to report quantitative measurementsalongside the qualitative result, the laboratoryprovides spot counts for informational purposes only.The T-SPOT.TB test should not be interpreted as aquantitative test. TS PANEL A 1 [facility] TS PANEL B 3 [facility] Negative Control Passed [facility] Positive Control Passed [facility] Comment:For additional infor gloria, please refer tohttp://education.Tripleseat/faq/FHC908(This link is being provided for informational/educational purposes only.)THIS TEST WAS PERFORMED AT:[facility] [place] [address]LWNLHEDKAYLA THAPA MD,PHD 01/27/2024 3:29 PM EST 01/27/2024 4:14 PM EST Trudy Solis MD LAB BLOOD ORDERABLES Fin al Result [facility] [address] [place] [address] [phone] * Measles, Mumps, and Rubella (MMR) Antibodies??(IgG) Panel, Immune Status (01/27/2024 3:29 PM EST) Mumps Virus IgG Antibody 12.40 AU/mL [facility] Comment:AU/mL Interpretation ------- <9.00 Not consistent with immunity9.00-10.99 Equivocal>10.99 Consistent with immunityThe presence of mumps IgG antibody suggests immunizationor past or current infection with mumps virus. Rubella IgG Antibody 1.54 Index [facility] Comment:Index Interpretation ----- <0.90 Not consistent with immunity 0.90-0.99 Equivocal > or = 1.00 Consistent with immunityThe presence of rubella IgG antibody suggestsimmunization or past or current infection withrubella virus.THIS TEST WAS PERFORMED AT:[facility] [address] [id number] CLARK MD Rubeola IgG (Measles) 150.00 AU/mL [facility] Comment:AU/mL Interpretation ----- <13.50 Not consistent with yrahmthi54.50-16.49 Equivocal>16.49 Consistent with immunityThe presence of measles IgG suggests immunization orpast or current infection with measles virus.For additional information, please refer tohttp://[employer].Network/faq/LGM368(This link is being provided for informational/educational purposes only.) Blood 01/27/2024 3:29 PM EST 01/27/2024 4:14 PM EST us Trudy Solis MD LAB BLOOD ORDERABLES Fin al Result [facility] [address] [place] [phone] * (ABNORMAL) Lipid Panel with Reflex to Direct LDL (01/27/2024 3:29 PM EST) Triglycerides 160(H) <150 mg/dL [facility] Comment:Desirable Triglyceri de: less than 150 mg/dLBorderline High Triglyceride 150-199 mg/dLHigh Triglyceride: 200-499 mg/dLVery High Triglyceride: greater than or equal to 5OO mg/dL Cholesterol 193 <200 mg/dL [facility] Comment:Desirable Cholestero l: less than 200 mg/dLBorderline High Cholesterol: 200-239 mg/dLHigh Cholesterol: greater than 239 mg/dL LDL Cholesterol Calculated 112(H) <100 mg/dL [facility] Comment:Desirable LDL: less than 100 mg/dLNear Optimal/Above Optimal LDL: 110- 129 mg/dLBorderline High LDL: 130-159 mg/dLHigh LDL: 160-189 mg/dLVery High LDL: greater than or equal to 190 mg/dL HDL Cholesterol 49 >40 mg/dL [facility] Comment:Desirable HDL: great er than 40 mg/dL Note: This HDL assay may give artificially low results in patients with liver disease. Blood 01/27/2024 3:29 PM EST 01/27/2024 4:14 PM EST Trudy Solis MD LAB BLOOD ORDERABLES Fin al Result Performing Organization Address [facility] de Phone Number [facility] [address] [place] [phone] * Hepatitis Panel, General (01/27/2024 3:29 PM EST) Hepatitis A IgM Nonreactive Nonreactive [facility] Comment:IgM antibodies to WELLS V not detected; does not exclude earlyacute or recovered HAV infection. ~Hepatitis B Surface Antibody NONREACTIVE Nonreactive [facility] Comment:Nonreactive: < 8.00 mIU/mL Hepatitis B Core Antibody Nonreactive Nonreactive [facility] Hepatitis C Antibody Nonreactive Nonreactive [facility] Comment:Antibodies to HCV no t detected; does not exclude early acuteHCV infection. Hepatitis B Surface Ag Negative Negative [facility] Blood 01/27/2024 3:29 PM EST 01/27/2024 4:14 PM EST Turdy Solis MD LAB BLOOD ORDERABLES Fin al Result Performing Organization Address [facility] de Phone Number [facility] [address] [place] [phone] * HIV-1/2 Antigen and Antibodies, Fourth Generation, with Reflexes (01/27/2024 3:29 PM EST) HIV AB/AG Nonreactive Nonreactive [facility] Comment:HIV-1 p24 Ag and/or HIV-1/HIV-2 Ab not detected.A test result that is nonreactive does not exclude thepossibility of exposure to or infection with HIV-1 and/orHIV-2. Nonreactive results in this assay for individualswith prior exposure to HIV-1 and/or HIV-2 may be due toantigen and antibody levels that are below the limit ofdetection of this assay.The [employer] HIV Ag/Ab Combo assay result andsupplemental assay results should be interpreted inconjunction with the patient's clinical presentation,history and other laboratory results. If the results areinconsistent with clinical evidence, additional testing issuggested to confirm the result. Blood Venous blood specimen / Unknown 01/27/2024 3:29 PM EST 01/27/2024 4:14 PM EST us Trudy Solis MD LAB BLOOD ORDERABLES Fin al Result [facility] [address] [place] [phone] from Last [address] [place] [address] [place] [address] Care Teams Barrel Rifler Button Relationship Specialty Start Date End Date Trudy Solis MD [address] [place] [phone] PCP - General Family Medicine 10/18/16
[2024-04-03 15:16] LABS: MANUAL DIFF FLAG NO
[2024-04-03 15:34] LABS: Basophils Percent Auto 0.3 % (0-2); Eosinophils Absolute Auto 0.2 X10*3/uL (0.0-0.4); Eosinophils Percent Auto 2.1 % (0-4); Hematocrit 40.8 % (42.0-52.0); Hemoglobin 13.9 g/dl (14.0-18.0); Imm Gran Abs Auto 0.04 X10*3/uL (0.00-0.03); Imm Gran Pct Auto 0.4 % (0.0-0.4); Lymphocytes Absolute Auto 3.4 X10*3/uL (1.2-4.9); Lymphocytes Percent Auto 33.5 % (20-40); Mean Corpuscular HGB Conc 34.1 g/dl (31.0-36.0); Mean Corpuscular Hemoglobin 29.5 pg (27.0-33.0); Mean Corpuscular Volume 86.6 fL (80.0-98.0); Mean Platelet Volume 8.6 fL (9.4-12.4); Monocytes Absolute Auto 0.7 X10*3/uL (0.1-1.2); Monocytes Percent Auto 6.4 % (2-11); Neutrophils Absolute Auto 5.8 x10*3/uL (2.0-8.3); Neutrophils Percent Auto 57.3 % (45-73); Platelet Count 275 X10*3/uL (160-400); Red Blood Count 4.71 X10*6/uL (4.60-5.80); Red Cell Distribution Width 13.8 % (11.0-16.0); White Blood Count 10.2 X10*3/uL (4.8-10.8)
[2024-04-03 15:58] LABS: Alanine Aminotransferase 26 U/L (0-40); Albumin Level 4.5 g/dL (3.5-5.0); Anion Gap 11 (12-20); Aspartate Amino Transferase 42 U/L (5-37); Bilirubin Total 0.3 mg/dL (0.0-1.0); Blood Urea Nitrogen 11 mg/dL (9-16); C Reactive Protein < 0.10 mg/dL (< or = 0.50); Calcium 9.8 mg/dL (8.4-10.2); Carbon Dioxide 30 mmol/L (22-29); Chloride 105 mmol/L (96-108); Estimated Glomerular Filt Rate > 60; Glucose Random 91 mg/dL (60-115); Potassium 4.3 mmol/L (3.3-5.1); Sodium 142 mmol/L (135-145)
[2024-04-03 16:28] LABS: Erythrocyte Sedimentation Rate 22 MM/HR (0-15)
[2024-04-03 16:42] LABS: Alkaline Phosphatase 112 U/L (39-117)
[2024-04-04 08:24] LABS: HBS Num1 6.55 mIU/mL (0-7.99); HBsAGNum1 0.35 S/CO (0.00-0.99); Hepatitis A Antibody IgM 0.14 Index (0-0.79); Hepatitis B Core Antibody Nonreactive (Nonreactive); Hepatitis B Surface Antigen Negative (Negative); ~HepC Num1 0.08 S/CO (0.00-0.79); ~Hepatitis A Antibody IgM Nonreactive (Nonreactive); ~Hepatitis B Surface Antibody NONREACTIVE (Nonreactive); ~Hepatitis C Antibody Nonreactive (Nonreactive)
[2024-04-06 03:03] LABS: TS Negative Control Passed; TS Panel A 0; TS Panel B 0; TS Positive Control Passed; TSpotTB Negative (Negative)
== END 2024-04-03 15:07 | disposition home or self-care (01) ==
LOC: HO.LAB 15:06
PROVIDERS: PCP Internal Medicine; Visit Provider Student in an Organized Health Care Education/Training Program
DX: M05.9 Rheumatoid arthritis with rheumatoid factor, unspecified (principal); Z11.1 Encounter for screening for respiratory tuberculosis; Z11.59 Encounter for screening for other viral diseases
CPT/HCPCS: 36415; 80053; 85025; 85652; 86140; 86481; 86704; 86706; 86709; 86803; 87340

== ENCOUNTER 2024-10-06 15:27 | Outpatient (AMB) | payer OTHER, SELFPAY ==
--- NOTE | 2024-10-06 15:39 | A.OFFVIS_ITS ---
Vital Signs 10/06/24 15:45 Height 5 ft 8 in Weight 161 lb 13.109 oz BMI 24.6 BP 115/70 Blood Pressure Location Rt brachial Position Sitting Pulse 87 Pulse Source Pulse Oximeter Pulse Oximetry (%) 97 Oxygen Delivery Method Room Air Intake Visit Reasons: RA Intake Note: Patient presents for RA follow up. Allergies No Known Allergies (No Known Allergies*) Allergy (Verified 10/06/24 15:45) HPI Comments Details: Patient is a 39-year-old male with seropositive rheumatoid arthritis here today for follow up Interval History: Patient last seen 01/07/[address] Drew - On Adalimumab - aaty 40mg every 2 weeks - Doing well - Denies joint pain, swelling or stiffness Today - On Adalimumab - aaty 40mg every 2 weeks SC - Doing well no complaints Rheumatologic History: ++RF+++CCP dx 2017 Methotrexate May 2018- stopped around September 2021 Patient planning with spouse. Enbrel: failed-dates unknown Humira: April 2018 - present effective Current Rheumatology Medication(s): Adalimumab - aaty 40mg every 2 weeks SC [facility] Medical History Denial Seropositive rheumatoid arthritis Surgical History No history of previous surgery Family History Mother Diabetes HTN (hypertension) Father Heart attack Social History Alcohol intake: current Alcohol intake frequency: holidays/special occasions only Patient Tobacco Use Status: Current everyday Tobacco user Cigarettes Per Day: 5 Years Smoked: 10 Review of Systems Const Details: Review of Systems Constitutional: Denies fever, chills, weight loss ENT: Denies vision changes, eye pain or eye redness, dental caries, dry mouth GI: Denies nausea, vomiting, diarrhea, abdominal pain, change in BM Pulm: Denies SOB, HANDY, hemoptysis, wheezing Cards: Denies chest pain, palpitations Skin: Denies Raynaud's, rash, nail changes, photosensitivity, CONTRACTING SUPPORT SPECIALIST: Denies headaches, weakness, paresthesias, recurrent falls MSK: as per HPI All other systems reviewed and are unremarkable except noted above Physical Exam Exam Exam: Vital signs reviewed Physical Examination CONSTITUITIONAL Patient alert and cooperative. Well appearing and in no apparent painful distress HEENT Conjunctiva and sclera clear. No lymphadenopathy. CHEST/RESPIRATORY SYSTEM Normal respiratory effort and able to speak in complete sentences. Clear to auscultation bilaterally. No crackles, rales, rhonchi, wheezes heard. CARDIAC SYSTEM Regular rate and rhythm. S1 and S2 heard no murmurs. Radial pulses intact bilaterally MSK Hands * Right Hand: Able to make a fist. No swelling or tenderness to palpation of these joints. No deformities noted. * Left Hand: Able to make a fist. No swelling or tenderness to palpation of these joints. No deformities noted. Wrists * Right Wrist: Full ROM. 70 degrees of wrist flexion, 80 degrees of wrist extension. No swelling or TTP * Left Wrist: Full ROM. 70 degrees of wrist flexion, 80 degrees of wrist extension. No swelling or TTP Elbows * Right Elbow: Full ROM. No swelling or TTP. No TTP of the medial and lateral epicondyles * Left Elbow: Full ROM. No swelling or TTP. No TTP of the medial and lateral epicondyles Shoulders * Right shoulder: Full ROM. No swelling noted. No TTP of the AC joint, subacromial bursa or posterior shoulder * Left shoulder: Full ROM. No swelling noted. No TTP of the AC joint, subacromial bursa or posterior shoulder Knees * Right knee: Full ROM. No swelling noted. No TTP of the knee joint lie or pes anserine bursa * Left knee: Full ROM. No swelling noted. No TTP of the knee joint lie or pes anserine bursa. Ankles * Right ankle: Good ankle dorsiflexion and plantar flexion. No swelling. No TTP of the ankle joint * Left ankle: Good ankle dorsiflexion and plantar flexion. No swelling. No TTP of the ankle joint Feet * Right foot: Negative squeeze test * Left foot: Negative squeeze test Tender points? * No tenderness to palpation of the bilateral trapezius, supraspinatus, anterior costochondral junctions, bilateral suboccipital muscle insertions SKIN No rashes Vital Signs: Last Vital Signs Pulse 87 10/06/24 15:45 BP 115/70 10/06/24 15:45 Pulse Ox 97 10/06/24 15:45 Oxygen Delivery Method Room Air 10/06/24 15:45 BMI result Body Mass Index 24.6 Results Reviewed Results Reviewed: Laboratory Tests 04/29/23 04/03/24 16:03 15:16 WBC 10.2 RBC 4.71 Hgb 13.9 L Hct 40.8 L Plt Count 275 ESR 13 22 H Sodium 142 Potassium 4.3 D Chloride 105 BUN 11 Creatinine 0.84 AST 42 H ALT 26 C-Reactive Protein < 0.10 Laboratory Tests 04/03/24 15:16 Hepatitis A IgM Ab Nonreactive Hep Bs Antigen Negative Hep Bs Antibody NONREACTIVE Hep B Core Total Ab Nonreactive Hepatitis C Ab (EIA) Nonreactive TB Test (T-Spot) Com Negative Assessment & Plan Assessment & Plan (1) Seropositive rheumatoid arthritis: Comment: ++RF+++CCP dx 2017 Methotrexate May 2018- stopped around September 2021 Patient planning with spouse. Enbrel: failed-dates unknown Humira: April 2018 - present effective Code(s): M05.9 - Rheumatoid arthritis with rheumatoid factor, unspecified Category: Medical Plan: #Seropositive RA Patient is a 39-year-old male with seropositive rheumatoid arthritis here today for follow up Currently in remission on Humira monotherapy Discussed smoking cessation but patient is not willing to stop smoking at this time Plan - Adalimumab-aaty 40mg SC every 2 weeks - RTC 6 months - Labs before visit: CBC, CMP, ESR, CRP (2) Encounter for monitoring of adalimumab therapy: Code(s): Z51.81 - Encounter for therapeutic drug level monitoring; 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 Plan: #Long-term Use of TNF Inhibitors: Discussed with the patient the benefits and risks of TNF inhibitors for the management of the rheumatic condition Benefits include reduce pain, maintenance of remission and reduction of flares as well as progression of the disease Risks include injection sites/infusion reactions, serious infections (such as bacterial infections, opportunistic infections), malignancy, delaminating syndromes, autoimmune phenomena, CHF exacerbations, palmar plantar psoriasis and cytopenias Recommended rotating injection sites, and holding medication during and for up to 1 week after resolution of a febrile illness or open skin wound Plan I spent 25 minutes reviewing the record and labs, taking a history, examining the patient, discussing the treatment plan, ordering diagnostic work up and documenting in the medical record Coding Level of Care Code Est Pt Level 3 (89194) Complex EM visit Add On G2211 Diagnoses Seropositive rheumatoid arthritis M05.9 Encounter for monitoring of adalimumab therapy Z51.81; Z79.620
[2024-10-06 15:45] VITALS: BP 115/70; PULSE 87; O2SAT 97; BMI 24.6
--- OUTSIDE RECORDS SUMMARY | 2024-10-06 16:16 | XMS_ITS | Clinical Summary ---
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 Name Role Phone Unavailable Primary Care Provider Unavailabl e Social History Tobacco Use Types Packs/Day Years Used Date Smoking Tobacco: Never Assessed Sex and Gender Information Value Date Recorded Sex Assigned at Not on file Legal Sex Male 5:21 AM EST Gender Identity Not on file Sexual Orientation Not on file Plan of Treatment Health Maintenance Due Date Last Done Comments DTaP,Tdap,and Td Vaccines (1 - Tdap) 2006 Hepatitis B Vaccines (1 of 3 - 19+ 3-dose series) 2006 COVID-19 Vaccine (2023-2 5 season) 2023 Depression Screening 02/26/2024 Influenza Vaccine (#1) 2024 HIB Vaccines Aged Out No longer eligi [...] patient's age to complete this topic Meningococcal B Vaccine Aged Out No l onger eligible based on patient's age to complete this topic Pneumococcal Vaccine: Pediat rics (0 to 5 Years) and At-Risk Patients (6 to 49 Years) Aged Out No longer eligible b ased on patient's age to complete this topic RSV Immunization Patients Un lary 20 months Aged Out No longer eligible b ased on patient's age to complete this topic Varicella Vaccines Aged Out No longer eligible based on patient's age to complete this topic
--- OUTSIDE RECORDS SUMMARY | 2024-10-06 16:16 | XMS_ITS | Clinical Summary ---
Author Organization [employer] Address [address] [place] [address] Care Team Providers Care Pressurised Container Filler Name Role Phone Trudy Solis MD Primary [...] at this time Fu at each visit. Immunizations Immunization Administration Dates Next Due Influenza injectable quadriv [...] 70 01/22/2024 10:19 AM EST Temperature 36.8 C (98.2 F) 01/22/2024 10:19 AM EST Respiratory Rate 16 01/22/2024 10:19 AM EST Oxygen Saturation 100% 01/22/2024 10:19 AM EST Inhaled Oxygen Concentration - - Weight 71.8 kg (158 lb 6 oz) 01/22/2024 10:19 AM EST Height 172.7 cm (5' 8 ) 01/22/2024 10:19 AM EST Body Mass Index 24.08 01/22/2024 10:19 AM EST Plan of Treatment Health Maintenance Due Date Last Done Comments Disability Screening 1987 Alcohol/Substance Use Screening 1999 Family Planning (PISQ) 2002 HPV Vaccines (1 - Male 3-dose series) 2002 Hepatitis B Vaccines (1 of 3 - 19+ 3-dose series) 2006 Pneumococcal Vaccine: Pediatrics (0 to 5 Years) and At-Risk Patients (6 to 49) Years (1 of 2 - PCV) 2006 COVID-19 Vaccine ( - season) 2023 Depression Screening 01/15/2024 01/14/2023, 01/15/20 23 SDOH Screening 09/10/2024 09/11/2023 Influenza Vaccine (#1) 2024 , 12/23/2019, 12/02/2018, Additional history exists Tobacco Screening 01/21/2025 01/22/2024 DTaP/Tdap/Td Vaccines (2 - Td or Tdap) 12/18/2026 12/18/2016, 08/05/2013 Lipid Panel 01/26/2029 01/27/2024 Zoster Vaccines (1 of 2) 2037 RSV Patients and Patients Aged 60 years or older (1 - 1-dose 75+ series) 2062 HIV Screening Completed 01/27/2024 Hepatitis C Screening Completed 04/03/2024 , 01/27/2024, 04/29/2023 HIB Vaccines Aged Out No longer eligi [...] Procedure Name Priority Date/Time Associated Diagnosis Comments HEPATITIS PANEL, GENERAL Routine 04/03/2024 3:16 PM EST HIV 1/2 ANTIGEN/ANTIBODY, FOURTH GENERATION W/RFL Routine 01/27/2024 3:29 PM EST Encounter for assessment of STD exposure LIPID PANEL WITH REFLEX TO DIRECT LDL Routine 01/27/2024 3:29 PM EST Cigarette nicotine dependence without complication Decreased vision in both eyes from Last 3 Months or Most Recently Relevant to Health Maintenance Results * Hepatitis Panel, General (04/03/2024 3:16 PM EST) Hepatitis A IgM Nonreactive Nonreactive [facility] Comment:IgM antibodies to WELLS V not detected; does not exclude earlyacute or recovered HAV infection. ~Hepatitis B Surface Antibody NONREACTIVE Nonreactive [facility] Comment:Nonreactive: < 8.00 mIU/mL Hepatitis B Core Antibody Nonreactive Nonreactive [facility] Hepatitis C Antibody Nonreactive Nonreactive [facility] Comment:Antibodies to HCV no t detected; does not exclude early acuteHCV infection. Hepatitis B Surface Ag Negative Negative [facility] 04/03/2024 3:16 PM EST 04/03/2024 3:16 PM EST us Generic External Data Provider LAB BLOOD ORDERAB LES Final Result [facility] [address] [place] [phone] * (ABNORMAL) Lipid Panel with Reflex to Direct LDL (01/27/2024 3:29 PM EST) Triglycerides 160(H) <150 mg/dL [facility] Comment:Desirable Triglyceri de: less than 150 mg/dLBorderline High Triglyceride 150-199 mg/dLHigh Triglyceride: 200-499 mg/dLVery High Triglyceride: greater than or equal to 5OO mg/dL Cholesterol 193 <200 mg/dL [facility] Comment:Desirable Cholestero l: less than 200 mg/dLBorderline High Cholesterol: 200-239 mg/dLHigh Cholesterol: greater than 239 mg/dL LDL Cholesterol Calculated 112(H) <100 mg/dL [facility] Comment:Desirable LDL: less than 100 mg/dLNear Optimal/Above Optimal LDL: 110- 129 mg/dLBorderline High LDL: 130-159 mg/dLHigh LDL: 160-189 mg/dLVery High LDL: greater than or equal to 190 mg/dL HDL Cholesterol 49 >40 mg/dL [facility] Comment:Desirable HDL: great er than 40 mg/dL Note: This HDL assay may give artificially low results in patients with liver disease. Blood 01/27/2024 3:29 PM EST 01/27/2024 4:14 PM EST Trudy Solis MD LAB BLOOD ORDERABLES Fin al Result Performing Organization Address [facility] Co de Phone Number [facility] [address] [place] [phone] * HIV-1/2 Antigen and Antibodies, Fourth Generation, with Reflexes (01/27/2024 3:29 PM EST) [facility] HIV AB/AG Nonreactive Nonreactive [facility] Comment:HIV-1 p24 Ag and/or HIV-1/HIV-2 Ab not detected.A test result that is nonreactive does not exclude thepossibility of exposure to or infection with HIV-1 and/orHIV-2. Nonreactive results in this assay for individualswith prior exposure to HIV-1 and/or HIV-2 may be due toantigen and antibody levels that are below the limit ofdetection of this assay.The [employer] HIV Ag/Ab Combo assay result andsupplemental assay results should be interpreted inconjunction with the patient's clinical presentation,history and other laboratory results. If the results areinconsistent with clinical evidence, additional testing issuggested to confirm the result. Blood Venous blood specimen / Unknown 01/27/2024 3:29 PM EST 01/27/2024 4:14 PM EST us Trudy Solis MD LAB BLOOD ORDERABLES Fin al Result Performing Organization Address City/[facility]/ZIP Co de Phone Number [facility] [address] [place] [phone] [phone] from Last 3 Months or Most Recently Relevant to Health Maintenance Insurance [facility] Care Teams Pressurised Container Filler Relationship Specialty Start Date End Date Trudy Solis MD [address] [place] [phone] PCP - General Family Medicine 10/18/16
== END 2024-10-06 16:05 | disposition home or self-care (01) ==
LOC: HO.RHES 15:28
PROVIDERS: PCP Internal Medicine; Visit Provider Student in an Organized Health Care Education/Training Program
DX: M05.9 Rheumatoid arthritis with rheumatoid factor, unspecified (principal); Z51.81 Encounter for therapeutic drug level monitoring; Z79.620 Long term (current) use of immunosuppressive biologic
CPT/HCPCS: 99213

== ENCOUNTER → 2024-10-06 15:27 | Outpatient (BNVA) | payer OTHER, SELFPAY | PROVIDERS: PCP Internal Medicine; Visit Provider Student in an Organized Health Care Education/Training Program | DX: M05.79 Rheumatoid arthritis with rheumatoid factor of multiple sites without organ or systems involvement (principal); Z51.81 Encounter for therapeutic drug level monitoring; Z79.620 Long term (current) use of immunosuppressive biologic | CPT/HCPCS: 99212 ==